=== PATIENT | female | born 1975 | race Hispanic/Latino ===

== ENCOUNTER 2016-10-10 19:34 | Emergency (ER) | payer OTHER ==
[~2016-10-10] VITALS: Ht 154.9 cm; Wt 67.0 kg
[2016-10-10] MEDS ORDERED: FLEXERIL5 MG PO (21:33)
[2016-10-10] MEDS ORDERED: NAPROSYN500 MG PO (21:33)
[2016-10-10 22:08] VITALS: BP 128/88
== END 2016-10-10 22:12 | disposition home or self-care (01) ==
LOC: EME 19:34 → RME 19:34
DX: S23.3XXA Sprain of ligaments of thoracic spine, initial encounter (principal); R51 Headache; V49.10XA Passenger injured in collision with unspecified motor vehicles in nontraffic accident, initial encounter
CPT/HCPCS: 72100; 99281; 99284